=== PATIENT | male | born 1950 | race Caucasian/White ===

== ENCOUNTER 2017-06-08 00:36 | Inpatient (IN) | payer MEDICARE, OTHER ==
[2017-06-08 02:53] LABS: ADD UMIC YES; UR ASCORBIC ACID 40 mg/dL (NEGATIVE); UR BACTERIA FEW /HPF (NONE SEEN); UR BILIRUBIN (Dip) NEGATIVE (NEGATIVE); UR BLOOD (Dip) 3+ mg/dL (NEGATIVE); UR CLARITY CLOUDY (CLEAR); UR COLOR YELLOW (YELLOW); UR GLUCOSE (Dip) NEGATIVE (NEGATIVE); UR KETONES (Dip) NEGATIVE (NEGATIVE); UR LEUKOCYTE ESTERASE (Dip) TRACE Leu/ul (NEGATIVE); UR MUCUS FEW /HPF (NONE SEEN); UR NITRITE (Dip) NEGATIVE (NEGATIVE); UR RBC 93 /HPF (0-5); UR SPECIFIC GRAVITY (Dip) 1.015 (1.003-1.030); UR SQUAMOUS EPITHELIAL CELL FEW /HPF (FEW); UR TOTAL PROTEIN (Dip) 2+ mg/dl (NEGATIVE); UR UROBILINOGEN (Dip) NEGATIVE (NEGATIVE); UR WBC 3 /HPF (0-5)
[2017-06-08 03:05] LABS: ADD MAN DIFF? NO
[2017-06-08 03:08] LABS: WHITE BLOOD COUNT 18.3 10^3/ul (4.8-10.8)
[2017-06-08 03:08] LABS: BASOPHIL # 0.1 10^3/ul (0.0-0.1); BASOPHILS % 0.3 % (0.0-2.0); EOSINOPHILS # 0.1 10^3/ul (0.0-0.5); EOSINOPHILS % 0.6 % (0.0-7.0); HEMATOCRIT 41.9 % (42.0-52.0); HEMOGLOBIN 14.1 g/dl (14.0-18.0); LYMPHOCYTES # 1.1 10^3/ul (0.8-2.9); LYMPHOCYTES % 6.2 % (15.0-51.0); MEAN CORPUSCULAR HEMOGLOBIN 31.5 pg (29.0-33.0); MEAN CORPUSCULAR HGB CONC 33.7 g/dl (32.0-37.0); MEAN CORPUSCULAR VOLUME 93.5 fl (82.0-101.0); MEAN PLATELET VOLUME 12.5 fl (7.4-10.4); MONOCYTE # 1.3 10^3/ul (0.3-0.9); NEUTROPHIL # 15.6 10^3/ul (1.6-7.5); NEUTROPHILS % 85.2 % (39.0-77.0); PLATELET COUNT 356 10^3/UL (140-415); RED BLOOD COUNT 4.48 10^6/ul (4.70-6.10); RED CELL DISTRIBUTION WIDTH 13.3 % (11.5-14.5)
[2017-06-08 03:26] LABS: LACTIC ACID 1.6 mmol/L (0.5-2.0)
[2017-06-08 03:26] LABS: INR 1.09; PROTIME 14.3 Sec (11.9-14.9); PT RATIO 1.1
[2017-06-08 03:27] LABS: PARTIAL THROMBOPLASTIN TIME 29.4 Sec (25.0-35.0)
[2017-06-08 03:38] LABS: AADO2 Arterial 75.3 mmHg (7.0-24.0); Allen Test ACCEPTAB; Arterial Base Excess 5.4 mmol/L (-3.0-3); Arterial Blood Gas Oxygen Sat 94.8 mmHG (95.0-98.0); Arterial COHb 0.5 % (0.0-3.0); Arterial HCO3 29.9 mmol/L (22.0-26.0); Arterial MetHb 0.3 % (0.0-1.5); Arterial Total Hemglobin 14.9 g/dl (12.0-18.0); Arterial pCO2 43.1 mmhg (35-45); Site Right Radial
[2017-06-08 03:58] LABS: ALANINE AMINOTRANSFERASE 30 IU/L (13-69); ALBUMIN 3.9 g/dl (3.3-4.9); ALKALINE PHOSPHATASE 55 IU/L (42-121); ANION GAP 17 (8-16); ASPARTATE AMINO TRANSFERASE 42 IU/L (15-46); BILIRUBIN,INDIRECT 0.1 mg/dl (0-1.1); BILIRUBIN,TOTAL 0.1 mg/dl (0.2-1.3); BLOOD UREA NITROGEN 48 mg/dl (7-20); CALCIUM 10.6 mg/dl (8.4-10.2); CARBON DIOXIDE 30 mmol/L (21-31); CHLORIDE 104 mmol/L (97-110); CREATININE 2.03 mg/dl (0.61-1.24); GLUCOSE 138 mg/dl (70-220); POTASSIUM 4.3 mmol/L (3.5-5.1); SODIUM 147 mmol/L (135-144); TOTAL PROTEIN 8.2 g/dl (6.1-8.1)
[2017-06-08 04:09] LABS: TROPONIN-I 0.013 ng/ml (0.00-0.12)
[2017-06-08] MEDS: VANCOMYCIN 1 GM (PMX) 250 ML IVPB ×2 (05:12→16:27)
[2017-06-08 05:46] LABS: LACTIC ACID 1.5 mmol/L (0.5-2.0)
[2017-06-08] MEDS: MEROPENEM 500MG/50 ML (PMX) 50 ML IVPB ×2 (11:17→21:24)
[2017-06-08 11:52] LABS: LACTIC ACID 0.8 mmol/L (0.5-2.0)
[2017-06-08 11:59] LABS: MODE COOL AEROSOL
[2017-06-08] MEDS ORDERED: morphine 2 MG INJ IV (12:00)
[2017-06-08] MEDS ORDERED: NACL 0.9% 3 ML SYG IV (12:00)
[2017-06-08] MEDS ORDERED: LORAZEPAM 2 MG INJ IV (12:00)
[2017-06-08] MEDS ORDERED: ONDANSETRON 4 MG INJ IV (12:00)
[2017-06-08] MEDS ORDERED: VANCOMYCIN IV PER PHARMACY XX (12:00)
[2017-06-08] MEDS: SOD CHLORIDE 0.9% 1,000 ML IV ×2 (12:46→21:24)
[2017-06-08] MEDS: FAMOTIDINE 20 MG INJ IV (13:22)
[2017-06-08] MEDS: ENOXAPARIN 40 MG/0.4 ML SYG SC (13:31)
[2017-06-08] MEDS: ALBUTEROL/IPRATROPIUM (NEB) 3 ML AMP HHN ×2 (14:59→20:50)
[2017-06-08] MEDS: ACETYLCYSTEINE 20% 4 ML VIAL NEB ×2 (14:59→20:50)
[2017-06-08 17:51] LABS: SODIUM,URINE RANDOM 32 mmol/L (30-90)
[2017-06-08 17:53] LABS: CREATININE,URINE RANDOM 57.14 mg/dl (20-370); PROTEIN/CREAT RATIO 0.56 RATIO
[2017-06-08] MEDS ORDERED: ALBUTEROL/IPRATROPIUM (NEB) 3 ML AMP HHN (18:00)
[2017-06-08] MEDS ORDERED: ZOLPIDEM 5 MG TAB GTB (19:00)
[2017-06-08] MEDS ORDERED: MEROPENEM 500MG/50 ML (PMX) 50 ML IVPB (21:00)
[2017-06-08] MEDS: ASPIRIN (EC) 81 MG TAB PO (21:20)
[2017-06-08] MEDS: SACCHAROMYCES BOULARDII 250 MG CAP GTB (21:23)
[2017-06-08] MEDS: FENOFIBRATE 145 MG TAB GTB (21:24)
[2017-06-08] MEDS: LEVETIRACETAM (100 MG/ML) 5ML CUP GTB (21:24)
[2017-06-09] MEDS: ALBUTEROL/IPRATROPIUM (NEB) 3 ML AMP HHN ×4 (01:21→19:35)
[2017-06-09] MEDS: ACETYLCYSTEINE 20% 4 ML VIAL NEB ×4 (01:22→19:35)
[2017-06-09] MEDS: LANSOPRAZOLE 30 MG CAP GTB (06:41)
[2017-06-09 06:48] LABS: ADD MAN DIFF? NO
[2017-06-09 06:51] LABS: BASOPHILS % 0.4 % (0.0-2.0); EOSINOPHILS # 0.2 10^3/ul (0.0-0.5); EOSINOPHILS % 1.7 % (0.0-7.0); HEMATOCRIT 35.2 % (42.0-52.0); HEMOGLOBIN 11.4 g/dl (14.0-18.0); LYMPHOCYTES # 1.3 10^3/ul (0.8-2.9); MEAN CORPUSCULAR HEMOGLOBIN 31.1 pg (29.0-33.0); MEAN CORPUSCULAR HGB CONC 32.4 g/dl (32.0-37.0); MEAN CORPUSCULAR VOLUME 96.2 fl (82.0-101.0); MEAN PLATELET VOLUME 12.6 fl (7.4-10.4); MONOCYTE # 0.8 10^3/ul (0.3-0.9); MONOCYTES % 7.1 % (0.0-11.0); NEUTROPHIL # 8.2 10^3/ul (1.6-7.5); NEUTROPHILS % 77.9 % (39.0-77.0); PLATELET COUNT 268 10^3/UL (140-415); RED BLOOD COUNT 3.66 10^6/ul (4.70-6.10); RED CELL DISTRIBUTION WIDTH 13.5 % (11.5-14.5)
[2017-06-09 06:51] LABS: WHITE BLOOD COUNT 10.5 10^3/ul (4.8-10.8)
[2017-06-09 07:09] LABS: URIC ACID 5.1 mg/dl (3.1-7.9)
[2017-06-09 07:09] LABS: CREATINE KINASE 24 IU/L (23-200)
[2017-06-09 07:16] LABS: ALANINE AMINOTRANSFERASE 20 IU/L (13-69); ALBUMIN 2.9 g/dl (3.3-4.9); ALBUMIN/GLOBULIN RATIO 0.85; ALKALINE PHOSPHATASE 36 IU/L (42-121); ANION GAP 16 (8-16); ASPARTATE AMINO TRANSFERASE 28 IU/L (15-46); BLOOD UREA NITROGEN 46 mg/dl (7-20); CALCIUM 9.6 mg/dl (8.4-10.2); CARBON DIOXIDE 27 mmol/L (21-31); CHLORIDE 112 mmol/L (97-110); GLUCOSE 111 mg/dl (70-220); MAGNESIUM 2.1 mg/dl (1.7-2.5); POTASSIUM 4.1 mmol/L (3.5-5.1); SODIUM 151 mmol/L (135-144); TOTAL PROTEIN 6.3 g/dl (6.1-8.1)
[2017-06-09] MEDS: LEVETIRACETAM (100 MG/ML) 5ML CUP GTB ×2 (08:57→20:51)
[2017-06-09] MEDS: SOD CHLORIDE 0.9% 1,000 ML IV (08:57)
[2017-06-09] MEDS: SACCHAROMYCES BOULARDII 250 MG CAP GTB ×2 (08:57→20:51)
[2017-06-09] MEDS: ASPIRIN (EC) 81 MG TAB PO (08:58)
[2017-06-09] MEDS: CHOLECALCIFEROL 2,000 UNIT CAP GTB (08:58)
[2017-06-09] MEDS: FISH OIL 1,000 MG CAP PO (08:58)
[2017-06-09] MEDS: FAMOTIDINE 20 MG INJ IV (08:59)
[2017-06-09] MEDS: MEROPENEM 500MG/50 ML (PMX) 50 ML IVPB (09:00)
[2017-06-09] MEDS: ENOXAPARIN 40 MG/0.4 ML SYG SC (09:05)
[2017-06-09] MEDS: DEXTROSE 5% 1,000 ML IV (10:30)
[2017-06-09] MEDS: VANCOMYCIN 1.25 GM in SOD CHLORIDE 0.9% 250 ML IVPB (15:41)
[2017-06-09] MEDS: MEROPENEM 1 GM/50ML(PMX) 50 ML IVPB (16:20)
[2017-06-09] MEDS: FENOFIBRATE 145 MG TAB GTB (20:51)
[2017-06-10] MEDS: DEXTROSE 5% 1,000 ML IV ×2 (01:06→06:00)
[2017-06-10] MEDS: MEROPENEM 1 GM/50ML(PMX) 50 ML IVPB ×3 (01:06→14:21)
[2017-06-10] MEDS: ALBUTEROL/IPRATROPIUM (NEB) 3 ML AMP HHN ×4 (01:31→19:29)
[2017-06-10] MEDS: ACETYLCYSTEINE 20% 4 ML VIAL NEB ×4 (01:41→19:41)
[2017-06-10] MEDS: LANSOPRAZOLE 30 MG CAP GTB (06:23)
[2017-06-10 06:45] LABS: WHITE BLOOD COUNT 7.1 10^3/ul (4.8-10.8)
[2017-06-10 06:45] LABS: ADD MAN DIFF? NO; BASOPHIL # 0.1 10^3/ul (0.0-0.1); BASOPHILS % 0.7 % (0.0-2.0); EOSINOPHILS # 0.4 10^3/ul (0.0-0.5); EOSINOPHILS % 5.2 % (0.0-7.0); HEMATOCRIT 31.8 % (42.0-52.0); HEMOGLOBIN 10.4 g/dl (14.0-18.0); LYMPHOCYTES # 1.6 10^3/ul (0.8-2.9); LYMPHOCYTES % 22.1 % (15.0-51.0); MEAN CORPUSCULAR HEMOGLOBIN 31.8 pg (29.0-33.0); MEAN CORPUSCULAR HGB CONC 32.7 g/dl (32.0-37.0); MEAN CORPUSCULAR VOLUME 97.2 fl (82.0-101.0); MONOCYTE # 0.6 10^3/ul (0.3-0.9); MONOCYTES % 8.5 % (0.0-11.0); NEUTROPHIL # 4.4 10^3/ul (1.6-7.5); NEUTROPHILS % 62.8 % (39.0-77.0); PLATELET COUNT 246 10^3/UL (140-415); RED BLOOD COUNT 3.27 10^6/ul (4.70-6.10); RED CELL DISTRIBUTION WIDTH 13.5 % (11.5-14.5)
[2017-06-10 07:04] LABS: ANION GAP 14 (8-16); BLOOD UREA NITROGEN 39 mg/dl (7-20); CALCIUM 9.3 mg/dl (8.4-10.2); CARBON DIOXIDE 31 mmol/L (21-31); CHLORIDE 111 mmol/L (97-110); CREATININE 1.18 mg/dl (0.61-1.24); GLUCOSE 106 mg/dl (70-220); POTASSIUM 3.3 mmol/L (3.5-5.1); SODIUM 153 mmol/L (135-144)
[2017-06-10] MEDS: LEVETIRACETAM (100 MG/ML) 5ML CUP GTB ×2 (08:56→22:10)
[2017-06-10] MEDS: ASPIRIN (EC) 81 MG TAB PO (08:57)
[2017-06-10] MEDS: CHOLECALCIFEROL 2,000 UNIT CAP GTB (08:57)
[2017-06-10] MEDS: FISH OIL 1,000 MG CAP PO (08:57)
[2017-06-10] MEDS: SACCHAROMYCES BOULARDII 250 MG CAP GTB ×2 (08:57→22:10)
[2017-06-10] MEDS: FAMOTIDINE 20 MG INJ IV (08:58)
[2017-06-10] MEDS: ENOXAPARIN 40 MG/0.4 ML SYG SC (09:08)
[2017-06-10] MEDS: D5W + KCL 20 MEQ 1,000 ML IV (11:38)
[2017-06-10] MEDS: VANCOMYCIN 1.25 GM in SOD CHLORIDE 0.9% 250 ML IVPB (15:19)
[2017-06-10] MEDS: FENOFIBRATE 145 MG TAB GTB (22:11)
[2017-06-11] MEDS: D5W + KCL 20 MEQ 1,000 ML IV ×2 (00:18→05:31)
[2017-06-11] MEDS: ACETYLCYSTEINE 20% 4 ML VIAL NEB ×4 (01:24→20:41)
[2017-06-11] MEDS: ALBUTEROL/IPRATROPIUM (NEB) 3 ML AMP HHN ×4 (01:38→20:41)
[2017-06-11] MEDS: LANSOPRAZOLE 30 MG CAP GTB (05:22)
[2017-06-11 07:01] LABS: ADD MAN DIFF? NO
[2017-06-11 07:10] LABS: ABNORMAL IP MESSAGE 1; BASOPHIL # 0.1 10^3/ul (0.0-0.1); BASOPHILS % 0.9 % (0.0-2.0); EOSINOPHILS # 0.3 10^3/ul (0.0-0.5); EOSINOPHILS % 4.8 % (0.0-7.0); HEMATOCRIT 32.2 % (42.0-52.0); HEMOGLOBIN 10.4 g/dl (14.0-18.0); LYMPHOCYTES # 1.4 10^3/ul (0.8-2.9); LYMPHOCYTES % 21.6 % (15.0-51.0); MEAN CORPUSCULAR HEMOGLOBIN 31.2 pg (29.0-33.0); MEAN CORPUSCULAR HGB CONC 32.3 g/dl (32.0-37.0); MEAN CORPUSCULAR VOLUME 96.7 fl (82.0-101.0); MEAN PLATELET VOLUME 13.1 fl (7.4-10.4); MONOCYTE # 0.6 10^3/ul (0.3-0.9); MONOCYTES % 8.4 % (0.0-11.0); NEUTROPHIL # 4.2 10^3/ul (1.6-7.5); NEUTROPHILS % 63.8 % (39.0-77.0); PLATELET COUNT 240 10^3/UL (140-415); POSITIVE DIFF @See below; RED BLOOD COUNT 3.33 10^6/ul (4.70-6.10); RED CELL DISTRIBUTION WIDTH 13.3 % (11.5-14.5)
[2017-06-11 07:10] LABS: WHITE BLOOD COUNT 6.5 10^3/ul (4.8-10.8)
[2017-06-11 08:03] LABS: ANION GAP 16 (8-16); BLOOD UREA NITROGEN 29 mg/dl (7-20); CARBON DIOXIDE 26 mmol/L (21-31); CHLORIDE 110 mmol/L (97-110); CREATININE 0.84 mg/dl (0.61-1.24); GLUCOSE 123 mg/dl (70-220); POTASSIUM 3.4 mmol/L (3.5-5.1); SODIUM 149 mmol/L (135-144)
[2017-06-11] MEDS: FAMOTIDINE 20 MG INJ IV (08:52)
[2017-06-11] MEDS: FISH OIL 1,000 MG CAP PO (08:52)
[2017-06-11] MEDS: LEVETIRACETAM (100 MG/ML) 5ML CUP GTB ×2 (08:52→20:04)
[2017-06-11] MEDS: CHOLECALCIFEROL 2,000 UNIT CAP GTB (08:53)
[2017-06-11] MEDS: SACCHAROMYCES BOULARDII 250 MG CAP GTB ×2 (08:53→20:04)
[2017-06-11] MEDS: ASPIRIN (EC) 81 MG TAB PO (08:53)
[2017-06-11] MEDS: ENOXAPARIN 40 MG/0.4 ML SYG SC (08:58)
[2017-06-11] MEDS ORDERED: POTASSIUM CHLORIDE (SR) 20 MEQ TAB PO (15:30)
[2017-06-11] MEDS: POTASSIUM CHLORIDE 20 MEQ POWDER FOR ORAL SOLN GTB (15:48)
[2017-06-11] MEDS: FENOFIBRATE 145 MG TAB GTB (20:04)
[2017-06-11] MEDS ORDERED: VITAMIN A & D 5 GM OINT PACKET TOP (23:24)
[2017-06-11] MEDS: LORAZEPAM 0.5 MG TAB PO (23:26)
[2017-06-12] MEDS: ALBUTEROL/IPRATROPIUM (NEB) 3 ML AMP HHN ×4 (01:35→21:10)
[2017-06-12] MEDS: ACETYLCYSTEINE 20% 4 ML VIAL NEB ×4 (01:37→21:10)
[2017-06-12] MEDS: LANSOPRAZOLE 30 MG CAP GTB (05:16)
[2017-06-12 07:03] LABS: ADD MAN DIFF? NO
[2017-06-12 07:14] LABS: WHITE BLOOD COUNT 7.3 10^3/ul (4.8-10.8)
[2017-06-12 07:14] LABS: BASOPHIL # 0.1 10^3/ul (0.0-0.1); BASOPHILS % 0.8 % (0.0-2.0); EOSINOPHILS # 0.3 10^3/ul (0.0-0.5); HEMATOCRIT 33.5 % (42.0-52.0); LYMPHOCYTES # 1.6 10^3/ul (0.8-2.9); LYMPHOCYTES % 21.9 % (15.0-51.0); MEAN CORPUSCULAR HEMOGLOBIN 31.7 pg (29.0-33.0); MEAN CORPUSCULAR HGB CONC 32.8 g/dl (32.0-37.0); MEAN CORPUSCULAR VOLUME 96.5 fl (82.0-101.0); MEAN PLATELET VOLUME 12.5 fl (7.4-10.4); MONOCYTE # 0.7 10^3/ul (0.3-0.9); MONOCYTES % 9.2 % (0.0-11.0); NEUTROPHIL # 4.7 10^3/ul (1.6-7.5); NEUTROPHILS % 63.7 % (39.0-77.0); PLATELET COUNT 240 10^3/UL (140-415); RED BLOOD COUNT 3.47 10^6/ul (4.70-6.10)
[2017-06-12 07:43] LABS: ANION GAP 15 (8-16); BLOOD UREA NITROGEN 27 mg/dl (7-20); CARBON DIOXIDE 29 mmol/L (21-31); CHLORIDE 107 mmol/L (97-110); CREATININE 0.77 mg/dl (0.61-1.24); GLUCOSE 98 mg/dl (70-220); POTASSIUM 4.2 mmol/L (3.5-5.1); SODIUM 147 mmol/L (135-144)
[2017-06-12] MEDS: FAMOTIDINE 20 MG INJ IV (09:03)
[2017-06-12] MEDS: LEVETIRACETAM (100 MG/ML) 5ML CUP GTB ×2 (09:03→19:53)
[2017-06-12] MEDS: ASPIRIN (EC) 81 MG TAB PO (09:04)
[2017-06-12] MEDS: FISH OIL 1,000 MG CAP PO (09:04)
[2017-06-12] MEDS: SACCHAROMYCES BOULARDII 250 MG CAP GTB ×2 (09:04→19:54)
[2017-06-12] MEDS: CHOLECALCIFEROL 2,000 UNIT CAP GTB (09:06)
[2017-06-12] MEDS: ENOXAPARIN 40 MG/0.4 ML SYG SC (09:27)
[2017-06-12] MEDS: FENOFIBRATE 145 MG TAB GTB (19:54)
[2017-06-12] MEDS: LORAZEPAM 0.5 MG TAB PO (22:36)
[2017-06-12] MEDS: IVERMECTIN 3 MG TAB PO (22:37)
[2017-06-12] MEDS: DOXYCYCLINE 100 MG in SOD CHLORIDE 0.9% 250 ML IVPB (22:48)
[2017-06-12] MEDS: PERMETHRIN 5% 60 GM CR TOP (23:20)
[2017-06-12] MEDS: MUPIROCIN 2% 22 GM OINT TOP (23:20)
[2017-06-13] MEDS: ALBUTEROL/IPRATROPIUM (NEB) 3 ML AMP HHN ×4 (02:08→19:39)
[2017-06-13] MEDS: ACETYLCYSTEINE 20% 4 ML VIAL NEB ×4 (02:09→19:39)
[2017-06-13] MEDS: LANSOPRAZOLE 30 MG CAP GTB (05:35)
[2017-06-13 07:48] LABS: ADD MAN DIFF? NO
[2017-06-13 07:54] LABS: BASOPHIL # 0.1 10^3/ul (0.0-0.1); BASOPHILS % 0.6 % (0.0-2.0); EOSINOPHILS # 0.4 10^3/ul (0.0-0.5); EOSINOPHILS % 3.5 % (0.0-7.0); HEMATOCRIT 35.2 % (42.0-52.0); HEMOGLOBIN 11.5 g/dl (14.0-18.0); LYMPHOCYTES # 1.5 10^3/ul (0.8-2.9); LYMPHOCYTES % 14.7 % (15.0-51.0); MEAN CORPUSCULAR HEMOGLOBIN 31.6 pg (29.0-33.0); MEAN CORPUSCULAR HGB CONC 32.7 g/dl (32.0-37.0); MEAN CORPUSCULAR VOLUME 96.7 fl (82.0-101.0); MEAN PLATELET VOLUME 12.9 fl (7.4-10.4); MONOCYTE # 0.7 10^3/ul (0.3-0.9); MONOCYTES % 6.3 % (0.0-11.0); NEUTROPHIL # 7.7 10^3/ul (1.6-7.5); NEUTROPHILS % 74.5 % (39.0-77.0); PLATELET COUNT 251 10^3/UL (140-415); RED BLOOD COUNT 3.64 10^6/ul (4.70-6.10); RED CELL DISTRIBUTION WIDTH 12.9 % (11.5-14.5)
[2017-06-13 07:54] LABS: WHITE BLOOD COUNT 10.3 10^3/ul (4.8-10.8)
[2017-06-13 08:15] LABS: ANION GAP 15 (8-16); BLOOD UREA NITROGEN 30 mg/dl (7-20); CALCIUM 9.2 mg/dl (8.4-10.2); CARBON DIOXIDE 26 mmol/L (21-31); CHLORIDE 110 mmol/L (97-110); CREATININE 0.71 mg/dl (0.61-1.24); GLUCOSE 118 mg/dl (70-220); SODIUM 147 mmol/L (135-144)
[2017-06-13] MEDS: SACCHAROMYCES BOULARDII 250 MG CAP GTB ×2 (09:49→22:59)
[2017-06-13] MEDS: FISH OIL 1,000 MG CAP PO (09:50)
[2017-06-13] MEDS: MUPIROCIN 2% 22 GM OINT TOP ×2 (09:50→23:02)
[2017-06-13] MEDS: CHOLECALCIFEROL 2,000 UNIT CAP GTB (09:50)
[2017-06-13] MEDS: LEVETIRACETAM (100 MG/ML) 5ML CUP GTB ×2 (09:50→22:59)
[2017-06-13] MEDS: DOXYCYCLINE 100 MG in SOD CHLORIDE 0.9% 250 ML IVPB ×2 (09:50→23:00)
[2017-06-13] MEDS: FAMOTIDINE 20 MG INJ IV (09:50)
[2017-06-13] MEDS: ASPIRIN (EC) 81 MG TAB PO (09:50)
[2017-06-13] MEDS: ENOXAPARIN 40 MG/0.4 ML SYG SC (09:51)
[2017-06-13] MEDS: CLOBETASOL 0.05% 15 GM OINT TOP ×2 (14:30→23:01)
[2017-06-13] MEDS: FENOFIBRATE 145 MG TAB GTB (23:00)
[2017-06-13] MEDS: LORAZEPAM 0.5 MG TAB PO (23:00)
[2017-06-14] MEDS: ACETYLCYSTEINE 20% 4 ML VIAL NEB ×5 (01:33→20:18)
[2017-06-14] MEDS: ALBUTEROL/IPRATROPIUM (NEB) 3 ML AMP HHN ×4 (01:33→20:18)
[2017-06-14] MEDS: LANSOPRAZOLE 30 MG CAP GTB (06:27)
[2017-06-14 08:21] LABS: ADD MAN DIFF? NO
[2017-06-14 08:34] LABS: ABNORMAL IP MESSAGE 1; BASOPHIL # 0.1 10^3/ul (0.0-0.1); BASOPHILS % 1.3 % (0.0-2.0); EOSINOPHILS # 0.5 10^3/ul (0.0-0.5); EOSINOPHILS % 7.5 % (0.0-7.0); HEMATOCRIT 36.6 % (42.0-52.0); HEMOGLOBIN 11.9 g/dl (14.0-18.0); LYMPHOCYTES # 1.7 10^3/ul (0.8-2.9); LYMPHOCYTES % 23.6 % (15.0-51.0); MEAN CORPUSCULAR HEMOGLOBIN 31.5 pg (29.0-33.0); MEAN CORPUSCULAR HGB CONC 32.5 g/dl (32.0-37.0); MEAN CORPUSCULAR VOLUME 96.8 fl (82.0-101.0); MEAN PLATELET VOLUME 13.1 fl (7.4-10.4); MONOCYTE # 0.5 10^3/ul (0.3-0.9); MONOCYTES % 7.7 % (0.0-11.0); NEUTROPHIL # 4.2 10^3/ul (1.6-7.5); NEUTROPHILS % 59.6 % (39.0-77.0); PLATELET COUNT 260 10^3/UL (140-415); POSITIVE DIFF @See below; RED BLOOD COUNT 3.78 10^6/ul (4.70-6.10); RED CELL DISTRIBUTION WIDTH 12.9 % (11.5-14.5)
[2017-06-14 08:55] LABS: ANION GAP 16 (8-16); BLOOD UREA NITROGEN 34 mg/dl (7-20); CALCIUM 9.3 mg/dl (8.4-10.2); CARBON DIOXIDE 27 mmol/L (21-31); CHLORIDE 110 mmol/L (97-110); CREATININE 0.68 mg/dl (0.61-1.24); GLUCOSE 117 mg/dl (70-220); POTASSIUM 3.8 mmol/L (3.5-5.1); SODIUM 149 mmol/L (135-144)
[2017-06-14] MEDS: DOXYCYCLINE 100 MG in SOD CHLORIDE 0.9% 250 ML IVPB ×2 (09:00→23:05)
[2017-06-14] MEDS: CHOLECALCIFEROL 2,000 UNIT CAP GTB (09:58)
[2017-06-14] MEDS: SACCHAROMYCES BOULARDII 250 MG CAP GTB ×3 (09:58→23:03)
[2017-06-14] MEDS: MUPIROCIN 2% 22 GM OINT TOP ×2 (09:59→23:05)
[2017-06-14] MEDS: LEVETIRACETAM (100 MG/ML) 5ML CUP GTB ×2 (09:59→23:03)
[2017-06-14] MEDS: FISH OIL 1,000 MG CAP PO (09:59)
[2017-06-14] MEDS: ASPIRIN (EC) 81 MG TAB PO (09:59)
[2017-06-14] MEDS: FAMOTIDINE 20 MG INJ IV (09:59)
[2017-06-14] MEDS: CLOBETASOL 0.05% 15 GM OINT TOP ×2 (10:00→23:05)
[2017-06-14] MEDS: ENOXAPARIN 40 MG/0.4 ML SYG SC (10:03)
[2017-06-14] MEDS: POTASSIUM CHLORIDE 10 MEQ in DEXTROSE 5% 1,000 ML IV (14:23)
[2017-06-14] MEDS: LORAZEPAM 0.5 MG TAB PO (23:03)
[2017-06-14] MEDS: FENOFIBRATE 145 MG TAB GTB (23:03)
[2017-06-15] MEDS: ALBUTEROL/IPRATROPIUM (NEB) 3 ML AMP HHN ×4 (02:26→20:06)
[2017-06-15] MEDS: ACETYLCYSTEINE 20% 4 ML VIAL NEB ×4 (02:27→20:06)
[2017-06-15] MEDS: POTASSIUM CHLORIDE 10 MEQ in DEXTROSE 5% 1,000 ML IV ×2 (04:22→11:41)
[2017-06-15] MEDS: LANSOPRAZOLE 30 MG CAP GTB (06:45)
[2017-06-15 06:51] LABS: ANION GAP 9 (8-16); BLOOD UREA NITROGEN 31 mg/dl (7-20); CARBON DIOXIDE 29 mmol/L (21-31); CHLORIDE 112 mmol/L (97-110); CREATININE 0.68 mg/dl (0.61-1.24); GLUCOSE 123 mg/dl (70-220); SODIUM 146 mmol/L (135-144)
[2017-06-15] MEDS: ASPIRIN (EC) 81 MG TAB PO (08:51)
[2017-06-15] MEDS: FAMOTIDINE 20 MG INJ IV (08:51)
[2017-06-15] MEDS: CHOLECALCIFEROL 2,000 UNIT CAP GTB (08:51)
[2017-06-15] MEDS: SACCHAROMYCES BOULARDII 250 MG CAP GTB ×2 (08:51→20:32)
[2017-06-15] MEDS: LEVETIRACETAM (100 MG/ML) 5ML CUP GTB ×2 (08:51→20:33)
[2017-06-15] MEDS: FISH OIL 1,000 MG CAP PO (08:52)
[2017-06-15] MEDS: DOXYCYCLINE 100 MG in SOD CHLORIDE 0.9% 250 ML IVPB ×2 (08:52→20:33)
[2017-06-15] MEDS: MUPIROCIN 2% 22 GM OINT TOP ×2 (09:00→20:34)
[2017-06-15] MEDS: CLOBETASOL 0.05% 15 GM OINT TOP ×2 (09:00→20:34)
[2017-06-15] MEDS: ENOXAPARIN 40 MG/0.4 ML SYG SC (09:18)
[2017-06-15] MEDS: PERMETHRIN 5% 60 GM CR TOP (14:22)
[2017-06-15] MEDS: FENOFIBRATE 145 MG TAB GTB (20:32)
[2017-06-15] MEDS: LORAZEPAM 0.5 MG TAB PO (22:45)
[2017-06-16] MEDS: LORAZEPAM 0.5 MG TAB PO ×2 (01:09→21:14)
[2017-06-16] MEDS: ALBUTEROL/IPRATROPIUM (NEB) 3 ML AMP HHN ×4 (01:23→20:42)
[2017-06-16] MEDS: ACETYLCYSTEINE 20% 4 ML VIAL NEB ×5 (01:23→20:43)
[2017-06-16] MEDS: LANSOPRAZOLE 30 MG CAP GTB (06:05)
[2017-06-16 07:04] LABS: ALANINE AMINOTRANSFERASE 25 IU/L (13-69); ALBUMIN 3.5 g/dl (3.3-4.9); ALBUMIN/GLOBULIN RATIO 0.94; ALKALINE PHOSPHATASE 56 IU/L (42-121); ANION GAP 14 (8-16); ASPARTATE AMINO TRANSFERASE 20 IU/L (15-46); BLOOD UREA NITROGEN 23 mg/dl (7-20); CALCIUM 8.5 mg/dl (8.4-10.2); CARBON DIOXIDE 24 mmol/L (21-31); CHLORIDE 105 mmol/L (97-110); CREATININE 0.64 mg/dl (0.61-1.24); GLUCOSE 120 mg/dl (70-220); POTASSIUM 3.9 mmol/L (3.5-5.1); SODIUM 139 mmol/L (135-144); TOTAL PROTEIN 7.2 g/dl (6.1-8.1)
[2017-06-16 07:05] LABS: PHOSPHORUS 2.5 mg/dl (2.5-4.9)
[2017-06-16 07:05] LABS: MAGNESIUM 1.7 mg/dl (1.7-2.5)
[2017-06-16] MEDS: MUPIROCIN 2% 22 GM OINT TOP ×2 (09:00→21:25)
[2017-06-16] MEDS: CLOBETASOL 0.05% 15 GM OINT TOP ×2 (09:00→21:25)
[2017-06-16] MEDS: CHOLECALCIFEROL 2,000 UNIT CAP GTB (09:00)
[2017-06-16] MEDS: LEVETIRACETAM (100 MG/ML) 5ML CUP GTB ×2 (09:29→21:14)
[2017-06-16] MEDS: FAMOTIDINE 20 MG INJ IV (09:31)
[2017-06-16] MEDS: ASPIRIN (EC) 81 MG TAB PO (09:31)
[2017-06-16] MEDS: SACCHAROMYCES BOULARDII 250 MG CAP GTB ×2 (09:32→21:14)
[2017-06-16] MEDS: FISH OIL 1,000 MG CAP PO (09:32)
[2017-06-16] MEDS: ENOXAPARIN 40 MG/0.4 ML SYG SC (09:36)
[2017-06-16] MEDS: DOXYCYCLINE 100 MG in SOD CHLORIDE 0.9% 250 ML IVPB ×2 (09:44→21:18)
[2017-06-16] MEDS: FENOFIBRATE 145 MG TAB GTB (21:14)
[2017-06-17] MEDS: ACETYLCYSTEINE 20% 4 ML VIAL NEB ×4 (01:18→20:01)
[2017-06-17] MEDS: ALBUTEROL/IPRATROPIUM (NEB) 3 ML AMP HHN ×4 (01:18→20:01)
[2017-06-17] MEDS: LANSOPRAZOLE 30 MG CAP GTB (06:10)
[2017-06-17] MEDS: LEVETIRACETAM (100 MG/ML) 5ML CUP GTB ×2 (09:16→21:37)
[2017-06-17] MEDS: ENOXAPARIN 40 MG/0.4 ML SYG SC (09:18)
[2017-06-17] MEDS: ASPIRIN (EC) 81 MG TAB PO (09:19)
[2017-06-17] MEDS: FISH OIL 1,000 MG CAP PO (09:19)
[2017-06-17] MEDS: SACCHAROMYCES BOULARDII 250 MG CAP GTB ×2 (09:19→21:38)
[2017-06-17] MEDS: CHOLECALCIFEROL 2,000 UNIT CAP GTB (09:19)
[2017-06-17] MEDS: MUPIROCIN 2% 22 GM OINT TOP (09:20)
[2017-06-17] MEDS: CLOBETASOL 0.05% 15 GM OINT TOP ×2 (09:21→21:37)
[2017-06-17] MEDS: FAMOTIDINE 20 MG INJ IV (09:29)
[2017-06-17] MEDS: DOXYCYCLINE 100 MG in SOD CHLORIDE 0.9% 250 ML IVPB (09:30)
[2017-06-17] MEDS: LORAZEPAM 0.5 MG TAB PO (21:37)
[2017-06-17] MEDS: ACETAMINOPHEN 325 MG TAB PO (21:38)
[2017-06-17] MEDS: FENOFIBRATE 145 MG TAB GTB (21:38)
[2017-06-18] MEDS: ALBUTEROL/IPRATROPIUM (NEB) 3 ML AMP HHN ×3 (02:05→13:46)
[2017-06-18] MEDS: ACETYLCYSTEINE 20% 4 ML VIAL NEB ×3 (02:05→13:58)
[2017-06-18] MEDS: LANSOPRAZOLE 30 MG CAP GTB (05:34)
[2017-06-18 06:10] LABS: ADD MAN DIFF? NO
[2017-06-18 06:11] LABS: WHITE BLOOD COUNT 6.6 10^3/ul (4.8-10.8)
[2017-06-18 06:11] LABS: ABNORMAL IP MESSAGE 1; BASOPHIL # 0.1 10^3/ul (0.0-0.1); BASOPHILS % 0.9 % (0.0-2.0); EOSINOPHILS # 0.4 10^3/ul (0.0-0.5); EOSINOPHILS % 6.1 % (0.0-7.0); HEMATOCRIT 34.4 % (42.0-52.0); HEMOGLOBIN 11.4 g/dl (14.0-18.0); LYMPHOCYTES % 29.8 % (15.0-51.0); MEAN CORPUSCULAR HEMOGLOBIN 31.1 pg (29.0-33.0); MEAN CORPUSCULAR HGB CONC 33.1 g/dl (32.0-37.0); MEAN CORPUSCULAR VOLUME 93.7 fl (82.0-101.0); MEAN PLATELET VOLUME 13.4 fl (7.4-10.4); MONOCYTE # 0.6 10^3/ul (0.3-0.9); MONOCYTES % 9.1 % (0.0-11.0); NEUTROPHIL # 3.5 10^3/ul (1.6-7.5); NEUTROPHILS % 53.5 % (39.0-77.0); PLATELET COUNT 234 10^3/UL (140-415); POSITIVE DIFF @See below; RED BLOOD COUNT 3.67 10^6/ul (4.70-6.10); RED CELL DISTRIBUTION WIDTH 12.9 % (11.5-14.5)
[2017-06-18 06:34] LABS: BLOOD UREA NITROGEN 25 mg/dl (7-20); CALCIUM 9.4 mg/dl (8.4-10.2); CARBON DIOXIDE 28 mmol/L (21-31); CREATININE 0.65 mg/dl (0.61-1.24); GLUCOSE 100 mg/dl (70-220); SODIUM 143 mmol/L (135-144)
[2017-06-18 07:48] LABS: ANION GAP 15 (8-16)
[2017-06-18 07:51] LABS: CHLORIDE 104 mmol/L (97-110)
[2017-06-18] MEDS: LEVETIRACETAM (100 MG/ML) 5ML CUP GTB (09:20)
[2017-06-18] MEDS: FISH OIL 1,000 MG CAP PO (09:21)
[2017-06-18] MEDS: ASPIRIN (EC) 81 MG TAB PO (09:21)
[2017-06-18] MEDS: CHOLECALCIFEROL 2,000 UNIT CAP GTB (09:21)
[2017-06-18] MEDS: FAMOTIDINE 20 MG INJ IV (09:21)
[2017-06-18] MEDS: ENOXAPARIN 40 MG/0.4 ML SYG SC (09:25)
[2017-06-18] MEDS: SACCHAROMYCES BOULARDII 250 MG CAP GTB (09:35)
[2017-06-18] MEDS: CLOBETASOL 0.05% 15 GM OINT TOP (09:36)
== END 2017-06-18 19:15 | DRG 871 ==
LOC: E/R 00:36 → MS2 06-14 20:45 → TEL 04:24
DX: A41.9 Sepsis, unspecified organism (principal); J18.9 Pneumonia, unspecified organism; N17.0 Acute kidney failure with tubular necrosis; G93.41 Metabolic encephalopathy; N17.9 Acute kidney failure, unspecified; N39.0 Urinary tract infection, site not specified; J96.10 Chronic respiratory failure, unspecified whether with hypoxia or hypercapnia; E87.0 Hyperosmolality and hypernatremia; N13.30 Unspecified hydronephrosis; Z93.0 Tracheostomy status; G35 Multiple sclerosis; R13.10 Dysphagia, unspecified; Z93.1 Gastrostomy status; Z96.0 Presence of urogenital implants; R65.20 Severe sepsis without septic shock; Y95 Nosocomial condition; N31.9 Neuromuscular dysfunction of bladder, unspecified; J01.90 Acute sinusitis, unspecified; B95.62 Methicillin resistant Staphylococcus aureus infection as the cause of diseases classified elsewhere; Z87.442 Personal history of urinary calculi; N13.9 Obstructive and reflux uropathy, unspecified; E87.6 Hypokalemia; R21 Rash and other nonspecific skin eruption
CPT/HCPCS: 36415; 36600; 70450; 71045; 74018; 76775; 80048; 80053; 81001; 81003; 82550; 82570; 82803; 82962; 83605; 83735; 84100; 84300; 84443; 84484; 84560; 85025; 85610; 85730; 87040; 87070; 87086; 88304; 89190; 93005; 94640; 94664; 96374; 97110; 97161; 99285-25

== ENCOUNTER 2017-08-22 19:53 | Inpatient (IN) | payer MEDICARE, OTHER ==
[2017-08-22] MEDS: SOD CHLORIDE 0.9% 1,000 ML IV (23:10)
[2017-08-22 23:25] LABS: ADD MAN DIFF? NO
[2017-08-22 23:26] LABS: BASOPHIL # 0.1 10^3/ul (0.0-0.1); BASOPHILS % 0.5 % (0.0-2.0); EOSINOPHILS # 0.3 10^3/ul (0.0-0.5); EOSINOPHILS % 2.6 % (0.0-7.0); HEMATOCRIT 37.1 % (42.0-52.0); HEMOGLOBIN 12.3 g/dl (14.0-18.0); LYMPHOCYTES # 1.3 10^3/ul (0.8-2.9); LYMPHOCYTES % 9.8 % (15.0-51.0); MEAN CORPUSCULAR HEMOGLOBIN 32.5 pg (29.0-33.0); MEAN CORPUSCULAR HGB CONC 33.2 g/dl (32.0-37.0); MEAN CORPUSCULAR VOLUME 97.9 fl (82.0-101.0); MEAN PLATELET VOLUME 12.3 fl (7.4-10.4); MONOCYTE # 0.8 10^3/ul (0.3-0.9); MONOCYTES % 6.3 % (0.0-11.0); NEUTROPHIL # 10.7 10^3/ul (1.6-7.5); NEUTROPHILS % 80.4 % (39.0-77.0); PLATELET COUNT 193 10^3/UL (140-415); RED BLOOD COUNT 3.79 10^6/ul (4.70-6.10); RED CELL DISTRIBUTION WIDTH 14.1 % (11.5-14.5)
[2017-08-22 23:26] LABS: WHITE BLOOD COUNT 13.3 10^3/ul (4.8-10.8)
[2017-08-22 23:45] LABS: ALANINE AMINOTRANSFERASE 31 IU/L (13-69); ALBUMIN/GLOBULIN RATIO 1.29; ALKALINE PHOSPHATASE 41 IU/L (42-121); ANION GAP 15 (8-16); ASPARTATE AMINO TRANSFERASE 25 IU/L (15-46); BILIRUBIN,INDIRECT 0.4 mg/dl (0-1.1); BILIRUBIN,TOTAL 0.4 mg/dl (0.2-1.3); BLOOD UREA NITROGEN 16 mg/dl (7-20); CALCIUM 9.1 mg/dl (8.4-10.2); CARBON DIOXIDE 30 mmol/L (21-31); CHLORIDE 100 mmol/L (97-110); CREATININE 0.82 mg/dl (0.61-1.24); GLUCOSE 96 mg/dl (70-220); LIPASE 35 U/L (23-300); SODIUM 141 mmol/L (135-144); TOTAL PROTEIN 7.1 g/dl (6.1-8.1)
[2017-08-23 00:01] LABS: ADD UMIC YES; UR ASCORBIC ACID 20 mg/dL (NEGATIVE); UR BACTERIA MODERATE /HPF (NONE SEEN); UR BILIRUBIN (Dip) NEGATIVE (NEGATIVE); UR BLOOD (Dip) 2+ mg/dL (NEGATIVE); UR CLARITY CLEAR (CLEAR); UR COLOR RED (YELLOW); UR GLUCOSE (Dip) 1+ mg/dL (NEGATIVE); UR KETONES (Dip) NEGATIVE (NEGATIVE); UR LEUKOCYTE ESTERASE (Dip) 2+ Leu/ul (NEGATIVE); UR MUCUS FEW /HPF (NONE SEEN); UR NITRITE (Dip) NEGATIVE (NEGATIVE); UR RBC 125 /HPF (0-5); UR SPECIFIC GRAVITY (Dip) 1.005 (1.003-1.030); UR TOTAL PROTEIN (Dip) 2+ mg/dl (NEGATIVE); UR UROBILINOGEN (Dip) NEGATIVE (NEGATIVE); UR WBC > 182 /HPF (0-5)
[2017-08-23] MEDS: SOD CHLORIDE 0.9% 1,000 ML IV (00:11)
[2017-08-23] MEDS ORDERED: ONDANSETRON 4 MG INJ IV (00:30)
[2017-08-23] MEDS ORDERED: ACETAMINOPHEN 325 MG TAB PO (00:30)
[2017-08-23] MEDS: CEFTRIAXONE 1 GM/50 ML (PMX) 50 ML IVPB (00:40)
[2017-08-23] MEDS: SODIUM CHLORIDE 0.9% 1L BAG IV* (00:41)
[2017-08-23 01:05] LABS: LACTIC ACID 0.9 mmol/L (0.5-2.0)
[2017-08-23] MEDS ORDERED: DIPHENHYDRAMINE 25 MG CAP GTB (05:00)
[2017-08-23] MEDS ORDERED: ZOLPIDEM 5 MG TAB GTB (05:00)
[2017-08-23 05:02] LABS: ADD MAN DIFF? NO
[2017-08-23 05:07] LABS: WHITE BLOOD COUNT 10.6 10^3/ul (4.8-10.8)
[2017-08-23 05:07] LABS: BASOPHILS % 0.3 % (0.0-2.0); EOSINOPHILS # 0.2 10^3/ul (0.0-0.5); EOSINOPHILS % 1.7 % (0.0-7.0); HEMATOCRIT 30.7 % (42.0-52.0); HEMOGLOBIN 10.2 g/dl (14.0-18.0); LYMPHOCYTES # 1.3 10^3/ul (0.8-2.9); LYMPHOCYTES % 12.3 % (15.0-51.0); MEAN CORPUSCULAR HEMOGLOBIN 32.7 pg (29.0-33.0); MEAN CORPUSCULAR HGB CONC 33.2 g/dl (32.0-37.0); MEAN CORPUSCULAR VOLUME 98.4 fl (82.0-101.0); MONOCYTE # 0.9 10^3/ul (0.3-0.9); MONOCYTES % 8.7 % (0.0-11.0); NEUTROPHIL # 8.2 10^3/ul (1.6-7.5); NEUTROPHILS % 76.7 % (39.0-77.0); PLATELET COUNT 158 10^3/UL (140-415); RED BLOOD COUNT 3.12 10^6/ul (4.70-6.10); RED CELL DISTRIBUTION WIDTH 14.2 % (11.5-14.5)
[2017-08-23 05:30] LABS: LACTIC ACID 0.7 mmol/L (0.5-2.0)
[2017-08-23] MEDS: LANSOPRAZOLE 30 MG CAP GTB (05:33)
[2017-08-23 05:34] LABS: ANION GAP 12 (8-16); BLOOD UREA NITROGEN 15 mg/dl (7-20); CALCIUM 8.2 mg/dl (8.4-10.2); CARBON DIOXIDE 27 mmol/L (21-31); CHLORIDE 107 mmol/L (97-110); CREATININE 0.78 mg/dl (0.61-1.24); GLUCOSE 105 mg/dl (70-220); POTASSIUM 3.9 mmol/L (3.5-5.1); SODIUM 142 mmol/L (135-144)
[2017-08-23] MEDS: PIPER-TAZO 3.375 GM IV (PMX) 100 ML IVPB ×3 (05:34→17:51)
[2017-08-23] MEDS ORDERED: ALBUTEROL/IPRATROPIUM (NEB) 3 ML AMP HHN ×2 (08:00→10:00)
[2017-08-23] MEDS: ALBUTEROL/IPRATROPIUM (NEB) 3 ML AMP HHN ×3 (08:00→19:20)
[2017-08-23] MEDS: ENOXAPARIN 40 MG/0.4 ML SYG SC (09:00)
[2017-08-23] MEDS: SACCHAROMYCES BOULARDII 250 MG CAP GTB ×2 (09:36→21:04)
[2017-08-23] MEDS: METHENAMINE 1 GM TAB GTB ×2 (09:36→21:04)
[2017-08-23] MEDS: DICYCLOMINE 10 MG CAP GTB ×2 (09:36→21:04)
[2017-08-23] MEDS: BACLOFEN 10 MG TAB GTB ×4 (09:37→21:04)
[2017-08-23] MEDS: CHOLECALCIFEROL 2,000 UNIT CAP GTB (09:37)
[2017-08-23] MEDS: ESCITALOPRAM 10 MG TAB GTB (09:37)
[2017-08-23] MEDS: FISH OIL 1,000 MG CAP PO (09:37)
[2017-08-23] MEDS: CHOLECALCIFEROL 1,000 UNIT TAB GTB (10:00)
[2017-08-23] MEDS: LEVETIRACETAM (100 MG/ML) 5ML CUP GTB ×2 (13:04→21:04)
[2017-08-23] MEDS: FENOFIBRATE 145 MG TAB GTB (21:04)
[2017-08-23] MEDS: LORAZEPAM 1 MG TAB GTB (21:04)
[2017-08-24] MEDS: ALBUTEROL/IPRATROPIUM (NEB) 3 ML AMP HHN ×4 (01:31→20:50)
[2017-08-24 05:15] LABS: ADD MAN DIFF? NO
[2017-08-24 05:22] LABS: WHITE BLOOD COUNT 7.8 10^3/ul (4.8-10.8)
[2017-08-24 05:22] LABS: BASOPHILS % 0.4 % (0.0-2.0); EOSINOPHILS # 0.2 10^3/ul (0.0-0.5); EOSINOPHILS % 1.9 % (0.0-7.0); HEMATOCRIT 28.2 % (42.0-52.0); HEMOGLOBIN 9.1 g/dl (14.0-18.0); LYMPHOCYTES # 1.2 10^3/ul (0.8-2.9); LYMPHOCYTES % 15.3 % (15.0-51.0); MEAN CORPUSCULAR HEMOGLOBIN 32.2 pg (29.0-33.0); MEAN CORPUSCULAR HGB CONC 32.3 g/dl (32.0-37.0); MEAN CORPUSCULAR VOLUME 99.6 fl (82.0-101.0); MEAN PLATELET VOLUME 12.7 fl (7.4-10.4); MONOCYTE # 0.6 10^3/ul (0.3-0.9); MONOCYTES % 7.8 % (0.0-11.0); NEUTROPHIL # 5.8 10^3/ul (1.6-7.5); NEUTROPHILS % 74.2 % (39.0-77.0); PLATELET COUNT 136 10^3/UL (140-415); RED BLOOD COUNT 2.83 10^6/ul (4.70-6.10); RED CELL DISTRIBUTION WIDTH 14.2 % (11.5-14.5)
[2017-08-24 05:43] LABS: ANION GAP 8 (8-16); BLOOD UREA NITROGEN 15 mg/dl (7-20); CARBON DIOXIDE 26 mmol/L (21-31); CHLORIDE 115 mmol/L (97-110); CREATININE 0.74 mg/dl (0.61-1.24); GLUCOSE 113 mg/dl (70-220); POTASSIUM 3.5 mmol/L (3.5-5.1); SODIUM 145 mmol/L (135-144)
[2017-08-24] MEDS: LANSOPRAZOLE 30 MG CAP GTB (06:09)
[2017-08-24] MEDS: PIPER-TAZO 3.375 GM IV (PMX) 100 ML IVPB ×4 (06:09→18:23)
[2017-08-24] MEDS: METHENAMINE 1 GM TAB GTB ×2 (09:48→21:13)
[2017-08-24] MEDS: SACCHAROMYCES BOULARDII 250 MG CAP GTB ×2 (09:48→21:13)
[2017-08-24] MEDS: DICYCLOMINE 10 MG CAP GTB ×2 (09:48→21:26)
[2017-08-24] MEDS: FISH OIL 1,000 MG CAP PO (09:48)
[2017-08-24] MEDS: BACLOFEN 10 MG TAB GTB ×4 (09:48→21:13)
[2017-08-24] MEDS: CHOLECALCIFEROL 1,000 UNIT TAB GTB (09:48)
[2017-08-24] MEDS: LEVETIRACETAM (100 MG/ML) 5ML CUP GTB ×2 (09:48→21:13)
[2017-08-24] MEDS: ESCITALOPRAM 10 MG TAB GTB (09:49)
[2017-08-24] MEDS: FENOFIBRATE 145 MG TAB GTB (21:13)
[2017-08-24] MEDS: LORAZEPAM 1 MG TAB GTB (23:01)
[2017-08-25] MEDS: PIPER-TAZO 3.375 GM IV (PMX) 100 ML IVPB ×4 (00:03→18:14)
[2017-08-25] MEDS: ALBUTEROL/IPRATROPIUM (NEB) 3 ML AMP HHN ×4 (01:51→20:17)
[2017-08-25] MEDS: LANSOPRAZOLE 30 MG CAP GTB (05:41)
[2017-08-25 06:19] LABS: ADD MAN DIFF? NO
[2017-08-25 06:33] LABS: WHITE BLOOD COUNT 6.2 10^3/ul (4.8-10.8)
[2017-08-25 06:33] LABS: ABNORMAL IP MESSAGE 1; BASOPHILS % 0.7 % (0.0-2.0); EOSINOPHILS # 0.3 10^3/ul (0.0-0.5); EOSINOPHILS % 4.6 % (0.0-7.0); HEMATOCRIT 28.7 % (42.0-52.0); LYMPHOCYTES # 1.2 10^3/ul (0.8-2.9); LYMPHOCYTES % 19.3 % (15.0-51.0); MEAN CORPUSCULAR HEMOGLOBIN 31.9 pg (29.0-33.0); MEAN CORPUSCULAR HGB CONC 31.4 g/dl (32.0-37.0); MEAN CORPUSCULAR VOLUME 101.8 fl (82.0-101.0); MEAN PLATELET VOLUME 13.4 fl (7.4-10.4); MONOCYTE # 0.5 10^3/ul (0.3-0.9); MONOCYTES % 8.5 % (0.0-11.0); NEUTROPHIL # 4.1 10^3/ul (1.6-7.5); NEUTROPHILS % 66.6 % (39.0-77.0); PLATELET COUNT 155 10^3/UL (140-415); POSITIVE DIFF @See below; RED BLOOD COUNT 2.82 10^6/ul (4.70-6.10); RED CELL DISTRIBUTION WIDTH 14.3 % (11.5-14.5)
[2017-08-25 07:14] LABS: ANION GAP 7 (8-16); BLOOD UREA NITROGEN 15 mg/dl (7-20); CALCIUM 8.3 mg/dl (8.4-10.2); CARBON DIOXIDE 27 mmol/L (21-31); CHLORIDE 116 mmol/L (97-110); CREATININE 0.68 mg/dl (0.61-1.24); GLUCOSE 103 mg/dl (70-220); POTASSIUM 3.8 mmol/L (3.5-5.1); SODIUM 146 mmol/L (135-144)
[2017-08-25] MEDS: ESCITALOPRAM 10 MG TAB GTB (09:39)
[2017-08-25] MEDS: CHOLECALCIFEROL 1,000 UNIT TAB GTB (09:40)
[2017-08-25] MEDS: METHENAMINE 1 GM TAB GTB ×2 (09:40→20:51)
[2017-08-25] MEDS: FISH OIL 1,000 MG CAP PO (09:40)
[2017-08-25] MEDS: DICYCLOMINE 10 MG CAP GTB ×2 (09:40→20:52)
[2017-08-25] MEDS: LEVETIRACETAM (100 MG/ML) 5ML CUP GTB ×2 (09:41→20:51)
[2017-08-25] MEDS: SACCHAROMYCES BOULARDII 250 MG CAP GTB ×2 (09:41→20:51)
[2017-08-25] MEDS: BACLOFEN 10 MG TAB GTB ×4 (09:41→20:52)
[2017-08-25] MEDS: FENOFIBRATE 145 MG TAB GTB (20:52)
[2017-08-25] MEDS: LORAZEPAM 1 MG TAB GTB (23:20)
[2017-08-26] MEDS: PIPER-TAZO 3.375 GM IV (PMX) 100 ML IVPB ×5 (00:16→23:25)
[2017-08-26] MEDS: ALBUTEROL/IPRATROPIUM (NEB) 3 ML AMP HHN ×4 (01:47→19:50)
[2017-08-26] MEDS: LANSOPRAZOLE 30 MG CAP GTB (05:37)
[2017-08-26] MEDS: BACLOFEN 10 MG TAB GTB ×4 (08:53→20:18)
[2017-08-26] MEDS: LEVETIRACETAM (100 MG/ML) 5ML CUP GTB ×2 (08:53→20:17)
[2017-08-26] MEDS: SACCHAROMYCES BOULARDII 250 MG CAP GTB ×2 (08:54→20:17)
[2017-08-26] MEDS: FISH OIL 1,000 MG CAP PO (08:54)
[2017-08-26] MEDS: ESCITALOPRAM 10 MG TAB GTB (08:54)
[2017-08-26] MEDS: DICYCLOMINE 10 MG CAP GTB ×2 (08:54→20:18)
[2017-08-26] MEDS: METHENAMINE 1 GM TAB GTB ×2 (08:55→20:18)
[2017-08-26] MEDS: CHOLECALCIFEROL 1,000 UNIT TAB GTB (08:55)
[2017-08-26] MEDS: LORAZEPAM 1 MG TAB GTB (20:17)
[2017-08-26] MEDS: FENOFIBRATE 145 MG TAB GTB (20:18)
[2017-08-27] MEDS: ALBUTEROL/IPRATROPIUM (NEB) 3 ML AMP HHN ×4 (02:19→20:49)
[2017-08-27 05:47] LABS: ADD MAN DIFF? NO
[2017-08-27 05:52] LABS: BASOPHILS % 0.8 % (0.0-2.0); EOSINOPHILS # 0.4 10^3/ul (0.0-0.5); EOSINOPHILS % 7.8 % (0.0-7.0); HEMATOCRIT 30.2 % (42.0-52.0); HEMOGLOBIN 9.8 g/dl (14.0-18.0); LYMPHOCYTES # 1.3 10^3/ul (0.8-2.9); LYMPHOCYTES % 23.6 % (15.0-51.0); MEAN CORPUSCULAR HEMOGLOBIN 31.8 pg (29.0-33.0); MEAN CORPUSCULAR HGB CONC 32.5 g/dl (32.0-37.0); MEAN CORPUSCULAR VOLUME 98.1 fl (82.0-101.0); MEAN PLATELET VOLUME 12.6 fl (7.4-10.4); MONOCYTE # 0.4 10^3/ul (0.3-0.9); MONOCYTES % 7.8 % (0.0-11.0); NEUTROPHIL # 3.2 10^3/ul (1.6-7.5); NEUTROPHILS % 59.8 % (39.0-77.0); PLATELET COUNT 195 10^3/UL (140-415); RED BLOOD COUNT 3.08 10^6/ul (4.70-6.10); RED CELL DISTRIBUTION WIDTH 13.7 % (11.5-14.5)
[2017-08-27 05:52] LABS: WHITE BLOOD COUNT 5.3 10^3/ul (4.8-10.8)
[2017-08-27 06:23] LABS: ANION GAP 9 (8-16); BLOOD UREA NITROGEN 9 mg/dl (7-20); CALCIUM 8.7 mg/dl (8.4-10.2); CARBON DIOXIDE 30 mmol/L (21-31); CHLORIDE 109 mmol/L (97-110); CREATININE 0.73 mg/dl (0.61-1.24); GLUCOSE 104 mg/dl (70-220); POTASSIUM 4.3 mmol/L (3.5-5.1); SODIUM 144 mmol/L (135-144)
[2017-08-27] MEDS: LANSOPRAZOLE 30 MG CAP GTB (06:49)
[2017-08-27] MEDS: PIPER-TAZO 3.375 GM IV (PMX) 100 ML IVPB ×2 (06:49→12:00)
[2017-08-27] MEDS: LEVETIRACETAM (100 MG/ML) 5ML CUP GTB ×2 (08:54→20:42)
[2017-08-27] MEDS: SACCHAROMYCES BOULARDII 250 MG CAP GTB ×2 (08:54→20:42)
[2017-08-27] MEDS: METHENAMINE 1 GM TAB GTB ×2 (08:54→20:42)
[2017-08-27] MEDS: FISH OIL 1,000 MG CAP PO (08:55)
[2017-08-27] MEDS: BACLOFEN 10 MG TAB GTB ×4 (08:55→20:43)
[2017-08-27] MEDS: DICYCLOMINE 10 MG CAP GTB ×2 (08:55→20:43)
[2017-08-27] MEDS: CHOLECALCIFEROL 1,000 UNIT TAB GTB (08:56)
[2017-08-27] MEDS: ESCITALOPRAM 10 MG TAB GTB (08:56)
[2017-08-27] MEDS ORDERED: CEFAZOLIN 1 GM/50 ML (PMX) 50 ML IVPB (14:00)
[2017-08-27] MEDS ORDERED: CEFAZOLIN 1 GM INJ IV (14:00)
[2017-08-27] MEDS: LORAZEPAM 1 MG TAB GTB (20:42)
[2017-08-27] MEDS: FENOFIBRATE 145 MG TAB GTB (20:43)
[2017-08-27] MEDS: CEFAZOLIN 1 GM/50 ML (PMX) 50 ML IVPB (21:32)
[2017-08-28] MEDS: ALBUTEROL/IPRATROPIUM (NEB) 3 ML AMP HHN ×4 (01:25→19:57)
[2017-08-28 05:08] LABS: ADD MAN DIFF? NO
[2017-08-28 05:10] LABS: BASOPHIL # 0.1 10^3/ul (0.0-0.1); BASOPHILS % 0.9 % (0.0-2.0); EOSINOPHILS # 0.4 10^3/ul (0.0-0.5); HEMATOCRIT 30.2 % (42.0-52.0); HEMOGLOBIN 9.7 g/dl (14.0-18.0); LYMPHOCYTES # 1.6 10^3/ul (0.8-2.9); LYMPHOCYTES % 28.4 % (15.0-51.0); MEAN CORPUSCULAR HEMOGLOBIN 31.6 pg (29.0-33.0); MEAN CORPUSCULAR HGB CONC 32.1 g/dl (32.0-37.0); MEAN CORPUSCULAR VOLUME 98.4 fl (82.0-101.0); MEAN PLATELET VOLUME 12.7 fl (7.4-10.4); MONOCYTE # 0.4 10^3/ul (0.3-0.9); MONOCYTES % 6.9 % (0.0-11.0); NEUTROPHILS % 55.4 % (39.0-77.0); PLATELET COUNT 216 10^3/UL (140-415); RED BLOOD COUNT 3.07 10^6/ul (4.70-6.10); RED CELL DISTRIBUTION WIDTH 13.7 % (11.5-14.5)
[2017-08-28 05:10] LABS: WHITE BLOOD COUNT 5.5 10^3/ul (4.8-10.8)
[2017-08-28 05:37] LABS: ANION GAP 10 (8-16); BLOOD UREA NITROGEN 11 mg/dl (7-20); CALCIUM 8.8 mg/dl (8.4-10.2); CARBON DIOXIDE 29 mmol/L (21-31); CHLORIDE 110 mmol/L (97-110); CREATININE 0.75 mg/dl (0.61-1.24); GLUCOSE 114 mg/dl (70-220); POTASSIUM 4.2 mmol/L (3.5-5.1); SODIUM 145 mmol/L (135-144)
[2017-08-28] MEDS: LANSOPRAZOLE 30 MG CAP GTB (05:44)
[2017-08-28] MEDS: CEFAZOLIN 1 GM/50 ML (PMX) 50 ML IVPB ×3 (05:45→21:34)
[2017-08-28] MEDS: BACLOFEN 10 MG TAB GTB ×4 (09:48→20:31)
[2017-08-28] MEDS: ESCITALOPRAM 10 MG TAB GTB (09:48)
[2017-08-28] MEDS: CHOLECALCIFEROL 1,000 UNIT TAB GTB (09:48)
[2017-08-28] MEDS: SACCHAROMYCES BOULARDII 250 MG CAP GTB ×2 (09:48→20:31)
[2017-08-28] MEDS: FISH OIL 1,000 MG CAP PO (09:48)
[2017-08-28] MEDS: LEVETIRACETAM (100 MG/ML) 5ML CUP GTB ×2 (09:48→20:30)
[2017-08-28] MEDS: DICYCLOMINE 10 MG CAP GTB ×2 (09:48→20:30)
[2017-08-28] MEDS: METHENAMINE 1 GM TAB GTB ×2 (09:48→20:31)
[2017-08-28] MEDS: LORAZEPAM 1 MG TAB GTB (20:31)
[2017-08-28] MEDS: FENOFIBRATE 145 MG TAB GTB (20:31)
[2017-08-29] MEDS: ALBUTEROL/IPRATROPIUM (NEB) 3 ML AMP HHN ×4 (02:13→20:08)
[2017-08-29] MEDS: CEFAZOLIN 1 GM/50 ML (PMX) 50 ML IVPB ×2 (05:21→13:27)
[2017-08-29] MEDS: LANSOPRAZOLE 30 MG CAP GTB (05:25)
[2017-08-29 06:01] LABS: ADD MAN DIFF? NO
[2017-08-29 06:05] LABS: WHITE BLOOD COUNT 6.5 10^3/ul (4.8-10.8)
[2017-08-29 06:05] LABS: BASOPHILS % 0.6 % (0.0-2.0); EOSINOPHILS # 0.4 10^3/ul (0.0-0.5); EOSINOPHILS % 5.9 % (0.0-7.0); LYMPHOCYTES # 1.7 10^3/ul (0.8-2.9); LYMPHOCYTES % 25.7 % (15.0-51.0); MEAN CORPUSCULAR HEMOGLOBIN 31.5 pg (29.0-33.0); MEAN CORPUSCULAR HGB CONC 32.3 g/dl (32.0-37.0); MEAN CORPUSCULAR VOLUME 97.8 fl (82.0-101.0); MEAN PLATELET VOLUME 12.8 fl (7.4-10.4); MONOCYTE # 0.5 10^3/ul (0.3-0.9); MONOCYTES % 7.3 % (0.0-11.0); NEUTROPHIL # 3.9 10^3/ul (1.6-7.5); NEUTROPHILS % 60.2 % (39.0-77.0); PLATELET COUNT 226 10^3/UL (140-415); RED BLOOD COUNT 3.17 10^6/ul (4.70-6.10); RED CELL DISTRIBUTION WIDTH 13.6 % (11.5-14.5)
[2017-08-29 06:36] LABS: ANION GAP 13 (8-16); BLOOD UREA NITROGEN 14 mg/dl (7-20); CALCIUM 8.9 mg/dl (8.4-10.2); CARBON DIOXIDE 27 mmol/L (21-31); CHLORIDE 108 mmol/L (97-110); GLUCOSE 107 mg/dl (70-220); SODIUM 144 mmol/L (135-144)
[2017-08-29] MEDS: METHENAMINE 1 GM TAB GTB ×2 (09:00→21:06)
[2017-08-29] MEDS: CHOLECALCIFEROL 1,000 UNIT TAB GTB (11:21)
[2017-08-29] MEDS: ESCITALOPRAM 10 MG TAB GTB (11:21)
[2017-08-29] MEDS: DICYCLOMINE 10 MG CAP GTB ×2 (11:22→21:06)
[2017-08-29] MEDS: FISH OIL 1,000 MG CAP PO (11:22)
[2017-08-29] MEDS: BACLOFEN 10 MG TAB GTB ×5 (11:22→23:41)
[2017-08-29] MEDS: LEVETIRACETAM (100 MG/ML) 5ML CUP GTB ×2 (11:22→21:06)
[2017-08-29] MEDS: SACCHAROMYCES BOULARDII 250 MG CAP GTB ×2 (13:20→22:07)
[2017-08-29] MEDS: FENOFIBRATE 145 MG TAB GTB (21:06)
[2017-08-29] MEDS: LORAZEPAM 1 MG TAB GTB (23:41)
[2017-08-30] MEDS: ALBUTEROL/IPRATROPIUM (NEB) 3 ML AMP HHN ×2 (01:43→07:45)
[2017-08-30] MEDS: LANSOPRAZOLE 30 MG CAP GTB (05:49)
[2017-08-30] MEDS: SACCHAROMYCES BOULARDII 250 MG CAP GTB (09:17)
[2017-08-30] MEDS: BACLOFEN 10 MG TAB GTB (09:17)
[2017-08-30] MEDS: ESCITALOPRAM 10 MG TAB GTB (09:17)
[2017-08-30] MEDS: FISH OIL 1,000 MG CAP PO (09:17)
[2017-08-30] MEDS: METHENAMINE 1 GM TAB GTB (09:17)
[2017-08-30] MEDS: CHOLECALCIFEROL 1,000 UNIT TAB GTB (09:17)
[2017-08-30] MEDS: DICYCLOMINE 10 MG CAP GTB (09:17)
[2017-08-30] MEDS: LEVETIRACETAM (100 MG/ML) 5ML CUP GTB (09:17)
== END 2017-08-30 14:01 | DRG 698 ==
LOC: E/R 19:53 → MS1 08-23 00:12
DX: S37.39XA Other injury of urethra, initial encounter (principal); G82.50 Quadriplegia, unspecified; J96.10 Chronic respiratory failure, unspecified whether with hypoxia or hypercapnia; R31.0 Gross hematuria; Y84.6 Urinary catheterization as the cause of abnormal reaction of the patient, or of later complication, without mention of misadventure at the time of the procedure; N31.9 Neuromuscular dysfunction of bladder, unspecified; R13.10 Dysphagia, unspecified; Z93.0 Tracheostomy status; Y73.8 Miscellaneous gastroenterology and urology devices associated with adverse incidents, not elsewhere classified; Y92.10 Unspecified residential institution as the place of occurrence of the external cause
CPT/HCPCS: 36415; 71045; 80048; 80053; 81001; 83605; 83690; 85025; 87040; 87081; 87086; 94640; 94664; 99291-25

== ENCOUNTER 2018-03-15 02:42 | Inpatient (IN) | payer MEDICARE, OTHER ==
[2018-03-15 03:15] LABS: ADD MAN DIFF? NO
[2018-03-15 03:16] LABS: ABNORMAL IP MESSAGE 1; BASOPHIL # 0.1 10^3/ul (0.0-0.1); BASOPHILS % 0.3 % (0.0-2.0); EOSINOPHILS # 0.1 10^3/ul (0.0-0.5); EOSINOPHILS % 0.2 % (0.0-7.0); HEMATOCRIT 43.2 % (42.0-52.0); HEMOGLOBIN 14.2 g/dl (14.0-18.0); LYMPHOCYTES # 2.2 10^3/ul (0.8-2.9); LYMPHOCYTES % 10.2 % (15.0-51.0); MEAN CORPUSCULAR HEMOGLOBIN 31.8 pg (29.0-33.0); MEAN CORPUSCULAR HGB CONC 32.9 g/dl (32.0-37.0); MEAN CORPUSCULAR VOLUME 96.6 fl (82.0-101.0); MEAN PLATELET VOLUME 12.5 fl (7.4-10.4); MONOCYTE # 1.9 10^3/ul (0.3-0.9); MONOCYTES % 8.8 % (0.0-11.0); PLATELET COUNT 176 10^3/UL (140-415); POSITIVE DIFF @See below; RED BLOOD COUNT 4.47 10^6/ul (4.70-6.10); RED CELL DISTRIBUTION WIDTH 13.5 % (11.5-14.5)
[2018-03-15 03:16] LABS: WHITE BLOOD COUNT 21.2 10^3/ul (4.8-10.8)
[2018-03-15 03:53] LABS: ANION GAP 8 (5-13); BLOOD UREA NITROGEN 14 mg/dl (7-20); CALCIUM 9.5 mg/dl (8.4-10.2); CARBON DIOXIDE 30 mmol/L (21-31); CHLORIDE 103 mmol/L (97-110); CREATININE 0.81 mg/dl (0.61-1.24); Estimated GFR > 60 mL/min (>60); GLUCOSE 110 mg/dl (70-220); POTASSIUM 3.8 mmol/L (3.5-5.1); SODIUM 141 mmol/L (135-144)
[2018-03-15] MEDS: PIPER-TAZO 3.375 GM IV (PMX) 100 ML IVPB (04:22)
[2018-03-15] MEDS: SODIUM CHLORIDE 0.9% 1L BAG IV* (04:22)
[2018-03-15 04:25] LABS: ADD UMIC YES; UR ASCORBIC ACID 40 mg/dL (NEGATIVE); UR BACTERIA FEW /HPF (NONE SEEN); UR BILIRUBIN (Dip) NEGATIVE (NEGATIVE); UR BLOOD (Dip) 3+ mg/dL (NEGATIVE); UR CLARITY CLOUDY (CLEAR); UR COLOR AMBER (YELLOW); UR GLUCOSE (Dip) NEGATIVE (NEGATIVE); UR KETONES (Dip) NEGATIVE (NEGATIVE); UR LEUKOCYTE ESTERASE (Dip) 2+ Leu/ul (NEGATIVE); UR MUCUS FEW /HPF (NONE SEEN); UR NITRITE (Dip) NEGATIVE (NEGATIVE); UR RBC > 182 /HPF (0-5); UR SPECIFIC GRAVITY (Dip) 1.016 (1.003-1.030); UR TOTAL PROTEIN (Dip) 3+ mg/dl (NEGATIVE); UR UROBILINOGEN (Dip) NEGATIVE (NEGATIVE); UR WBC 24 /HPF (0-5)
[2018-03-15] MEDS ORDERED: ONDANSETRON 4 MG INJ IV (04:30)
[2018-03-15] MEDS ORDERED: ACETAMINOPHEN 325 MG TAB PO (04:30)
[2018-03-15] MEDS: SOD CHLORIDE 0.9% IVPB (04:59)
[2018-03-15] MEDS: GENTAMICIN IVPB (04:59)
[2018-03-15] MEDS: VANCOMYCIN 1 GM (PMX) 250 ML IVPB (06:09)
[2018-03-15] MEDS: LEVETIRACETAM (100 MG/ML) 5ML CUP GTB ×2 (14:37→23:10)
[2018-03-15] MEDS ORDERED: ACETAMINOPHEN 325 MG TAB GTB (15:30)
[2018-03-15] MEDS ORDERED: NON-FORMULARY/PATIENT OWN MED (Glatiramer Acetate (Copaxone) 40 MG) SQ (15:30)
[2018-03-15] MEDS: ALBUTEROL 0.083% (NEB) 2.5 MG/3 ML AMP NEB ×2 (15:48→20:11)
[2018-03-15] MEDS: [UNRECOGNIZED DRUG - REMARK] XX (16:00)
[2018-03-15] MEDS: BACLOFEN 10 MG TAB GTB ×2 (18:21→21:05)
[2018-03-15] MEDS: ERTAPENEM SODIUM 1 GM in SOD CHLORIDE 0.9% 100 ML IVPB (18:24)
[2018-03-15] MEDS ORDERED: LEVETIRACETAM (100 MG/ML PO SYG) GTB (21:00)
[2018-03-15] MEDS: LORAZEPAM 1 MG TAB GTB (21:04)
[2018-03-15] MEDS: DICYCLOMINE 10 MG CAP GTB (21:05)
[2018-03-15] MEDS: METHENAMINE 1 GM TAB GTB (21:05)
[2018-03-16] MEDS: ALBUTEROL 0.083% (NEB) 2.5 MG/3 ML AMP NEB ×4 (01:24→19:44)
[2018-03-16 05:25] LABS: ADD MAN DIFF? NO
[2018-03-16 05:30] LABS: WHITE BLOOD COUNT 9.7 10^3/ul (4.8-10.8)
[2018-03-16 05:30] LABS: BASOPHILS % 0.4 % (0.0-2.0); EOSINOPHILS # 0.2 10^3/ul (0.0-0.5); EOSINOPHILS % 2.1 % (0.0-7.0); HEMATOCRIT 38.4 % (42.0-52.0); HEMOGLOBIN 12.4 g/dl (14.0-18.0); LYMPHOCYTES # 1.4 10^3/ul (0.8-2.9); LYMPHOCYTES % 14.4 % (15.0-51.0); MEAN CORPUSCULAR HEMOGLOBIN 31.7 pg (29.0-33.0); MEAN CORPUSCULAR HGB CONC 32.3 g/dl (32.0-37.0); MEAN CORPUSCULAR VOLUME 98.2 fl (82.0-101.0); MEAN PLATELET VOLUME 12.8 fl (7.4-10.4); MONOCYTE # 0.7 10^3/ul (0.3-0.9); NEUTROPHIL # 7.3 10^3/ul (1.6-7.5); NEUTROPHILS % 75.8 % (39.0-77.0); PLATELET COUNT 154 10^3/UL (140-415); RED BLOOD COUNT 3.91 10^6/ul (4.70-6.10); RED CELL DISTRIBUTION WIDTH 13.5 % (11.5-14.5)
[2018-03-16] MEDS: [UNRECOGNIZED DRUG - REMARK] XX ×3 (08:00→16:00)
[2018-03-16] MEDS: DICYCLOMINE 10 MG CAP GTB ×2 (08:50→21:29)
[2018-03-16] MEDS: MULTIVITAMINS THERAPEUTIC TAB GTB (08:51)
[2018-03-16] MEDS: FAMOTIDINE 20 MG TAB PO (08:51)
[2018-03-16] MEDS: POTASSIUM CHLORIDE 20 MEQ POWDER FOR ORAL SOLN GTB (08:51)
[2018-03-16] MEDS: SACCHAROMYCES BOULARDII 250 MG CAP GTB (08:51)
[2018-03-16] MEDS: ESCITALOPRAM 10 MG TAB GTB (08:51)
[2018-03-16] MEDS: BACLOFEN 10 MG TAB GTB ×4 (08:51→21:29)
[2018-03-16] MEDS: LEVETIRACETAM (100 MG/ML) 5ML CUP GTB ×2 (08:51→21:29)
[2018-03-16] MEDS: FENOFIBRATE 145 MG TAB GTB (08:51)
[2018-03-16] MEDS: METHENAMINE 1 GM TAB GTB ×2 (08:51→21:29)
[2018-03-16] MEDS: CHOLECALCIFEROL 1,000 UNIT TAB GTB (08:52)
[2018-03-16] MEDS: FERROUS SULFATE (EC) 325 MG TAB PO (08:55)
[2018-03-16] MEDS: DOCUSATE SODIUM 100 MG CAP PO (09:00)
[2018-03-16] MEDS: MAGNESIUM HYDROXIDE 30ML CUP GTB (09:00)
[2018-03-16] MEDS: ERTAPENEM SODIUM 1 GM in SOD CHLORIDE 0.9% 100 ML IVPB (17:47)
[2018-03-16] MEDS: LORAZEPAM 1 MG TAB GTB (23:18)
[2018-03-17] MEDS: ALBUTEROL 0.083% (NEB) 2.5 MG/3 ML AMP NEB ×4 (01:31→20:02)
[2018-03-17] MEDS: [UNRECOGNIZED DRUG - REMARK] XX ×3 (08:00→16:00)
[2018-03-17] MEDS: MAGNESIUM HYDROXIDE 30ML CUP GTB (10:04)
[2018-03-17] MEDS: POTASSIUM CHLORIDE 20 MEQ POWDER FOR ORAL SOLN GTB (10:05)
[2018-03-17] MEDS: DOCUSATE SODIUM 100 MG CAP PO (10:05)
[2018-03-17] MEDS: LEVETIRACETAM (100 MG/ML) 5ML CUP GTB ×2 (10:05→21:58)
[2018-03-17] MEDS: BACLOFEN 10 MG TAB GTB ×4 (10:05→21:58)
[2018-03-17] MEDS: MULTIVITAMINS THERAPEUTIC TAB GTB (10:05)
[2018-03-17] MEDS: ESCITALOPRAM 10 MG TAB GTB (10:05)
[2018-03-17] MEDS: METHENAMINE 1 GM TAB GTB ×2 (10:06→21:58)
[2018-03-17] MEDS: FENOFIBRATE 145 MG TAB GTB (10:06)
[2018-03-17] MEDS: DICYCLOMINE 10 MG CAP GTB ×2 (10:06→21:58)
[2018-03-17] MEDS: FERROUS SULFATE (EC) 325 MG TAB PO (10:07)
[2018-03-17] MEDS: CHOLECALCIFEROL 1,000 UNIT TAB GTB (10:07)
[2018-03-17] MEDS: FAMOTIDINE 20 MG TAB PO (10:07)
[2018-03-17] MEDS: SACCHAROMYCES BOULARDII 250 MG CAP GTB (10:07)
[2018-03-17] MEDS ORDERED: AMIKACIN IV PER PHARMACY XX (12:30)
[2018-03-17] MEDS: AMIKACIN 1,000 MG in SOD CHLORIDE 0.9% 100 ML IVPB (14:40)
[2018-03-17] MEDS: LORAZEPAM 1 MG TAB GTB (23:54)
[2018-03-18] MEDS: ALBUTEROL 0.083% (NEB) 2.5 MG/3 ML AMP NEB ×4 (01:41→20:38)
[2018-03-18 05:18] LABS: ADD MAN DIFF? NO
[2018-03-18 05:31] LABS: WHITE BLOOD COUNT 5.4 10^3/ul (4.8-10.8)
[2018-03-18 05:31] LABS: BASOPHILS % 0.7 % (0.0-2.0); EOSINOPHILS # 0.3 10^3/ul (0.0-0.5); EOSINOPHILS % 5.7 % (0.0-7.0); HEMOGLOBIN 13.6 g/dl (14.0-18.0); LYMPHOCYTES # 1.6 10^3/ul (0.8-2.9); LYMPHOCYTES % 30.4 % (15.0-51.0); MEAN CORPUSCULAR HEMOGLOBIN 31.8 pg (29.0-33.0); MEAN CORPUSCULAR HGB CONC 32.4 g/dl (32.0-37.0); MEAN CORPUSCULAR VOLUME 98.1 fl (82.0-101.0); MEAN PLATELET VOLUME 12.7 fl (7.4-10.4); MONOCYTE # 0.4 10^3/ul (0.3-0.9); NEUTROPHILS % 54.8 % (39.0-77.0); PLATELET COUNT 192 10^3/UL (140-415); RED BLOOD COUNT 4.28 10^6/ul (4.70-6.10); RED CELL DISTRIBUTION WIDTH 13.2 % (11.5-14.5)
[2018-03-18 05:48] LABS: ANION GAP 12 (5-13); BLOOD UREA NITROGEN 16 mg/dl (7-20); CALCIUM 9.5 mg/dl (8.4-10.2); CARBON DIOXIDE 31 mmol/L (21-31); CHLORIDE 102 mmol/L (97-110); CREATININE 0.67 mg/dl (0.61-1.24); Estimated GFR > 60 mL/min (>60); GLUCOSE 84 mg/dl (70-220); POTASSIUM 4.7 mmol/L (3.5-5.1); SODIUM 145 mmol/L (135-144)
[2018-03-18] MEDS: [UNRECOGNIZED DRUG - REMARK] XX ×4 (08:00→21:10)
[2018-03-18] MEDS: DOCUSATE SODIUM 100 MG CAP PO (10:06)
[2018-03-18] MEDS: FERROUS SULFATE (EC) 325 MG TAB PO (10:06)
[2018-03-18] MEDS: FENOFIBRATE 145 MG TAB GTB (10:14)
[2018-03-18] MEDS: BACLOFEN 10 MG TAB GTB ×4 (10:14→21:21)
[2018-03-18] MEDS: DICYCLOMINE 10 MG CAP GTB ×2 (10:14→21:21)
[2018-03-18] MEDS: CHOLECALCIFEROL 1,000 UNIT TAB GTB (10:14)
[2018-03-18] MEDS: POTASSIUM CHLORIDE 20 MEQ POWDER FOR ORAL SOLN GTB (10:14)
[2018-03-18] MEDS: FAMOTIDINE 20 MG TAB PO (10:15)
[2018-03-18] MEDS: ESCITALOPRAM 10 MG TAB GTB (10:15)
[2018-03-18] MEDS: METHENAMINE 1 GM TAB GTB ×2 (10:15→21:21)
[2018-03-18] MEDS: SACCHAROMYCES BOULARDII 250 MG CAP GTB (10:15)
[2018-03-18] MEDS: MAGNESIUM HYDROXIDE 30ML CUP GTB (10:15)
[2018-03-18] MEDS: LEVETIRACETAM (100 MG/ML) 5ML CUP GTB ×2 (10:15→21:21)
[2018-03-18] MEDS: MULTIVITAMINS THERAPEUTIC TAB GTB (10:15)
[2018-03-18] MEDS ORDERED: AMIKACIN 1,000 MG in SOD CHLORIDE 0.9% 250 ML IVPB (10:27)
[2018-03-18] MEDS: AMIKACIN 1,000 MG in SOD CHLORIDE 0.9% 250 ML IVPB (13:31)
[2018-03-18] MEDS: LORAZEPAM 1 MG TAB GTB (21:21)
[2018-03-19] MEDS: ALBUTEROL 0.083% (NEB) 2.5 MG/3 ML AMP NEB ×3 (01:49→14:26)
[2018-03-19] MEDS: [UNRECOGNIZED DRUG - REMARK] XX (08:00)
[2018-03-19] MEDS: MAGNESIUM HYDROXIDE 30ML CUP GTB (09:00)
[2018-03-19] MEDS: DOCUSATE SODIUM 100 MG CAP PO (09:00)
[2018-03-19] MEDS: LEVETIRACETAM (100 MG/ML) 5ML CUP GTB (10:36)
[2018-03-19] MEDS: SACCHAROMYCES BOULARDII 250 MG CAP GTB (10:37)
[2018-03-19] MEDS: DICYCLOMINE 10 MG CAP GTB (10:37)
[2018-03-19] MEDS: FENOFIBRATE 145 MG TAB GTB (10:37)
[2018-03-19] MEDS: MULTIVITAMINS THERAPEUTIC TAB GTB (10:37)
[2018-03-19] MEDS: ESCITALOPRAM 10 MG TAB GTB (10:37)
[2018-03-19] MEDS: POTASSIUM CHLORIDE 20 MEQ POWDER FOR ORAL SOLN GTB (10:37)
[2018-03-19] MEDS: METHENAMINE 1 GM TAB GTB (10:37)
[2018-03-19] MEDS: CHOLECALCIFEROL 1,000 UNIT TAB GTB (10:38)
[2018-03-19] MEDS: BACLOFEN 10 MG TAB GTB ×2 (10:38→14:55)
[2018-03-19] MEDS: FAMOTIDINE 20 MG TAB PO (10:39)
[2018-03-19] MEDS: FERROUS SULFATE (EC) 325 MG TAB PO (10:39)
[2018-03-19] MEDS: AMIKACIN 1,000 MG in SOD CHLORIDE 0.9% 250 ML IVPB (14:55)
[2018-03-19 16:32] LABS: AMIKACIN TROUGH <2.5 mg/L (4.0-8.0)
== END 2018-03-19 17:50 | DRG 699 ==
LOC: E/R 02:42 → MS1 04:31
DX: T83.511A Infection and inflammatory reaction due to indwelling urethral catheter, initial encounter (principal); N30.01 Acute cystitis with hematuria; J96.10 Chronic respiratory failure, unspecified whether with hypoxia or hypercapnia; Z93.0 Tracheostomy status; R13.10 Dysphagia, unspecified; N31.9 Neuromuscular dysfunction of bladder, unspecified; G35 Multiple sclerosis; E78.5 Hyperlipidemia, unspecified; G40.909 Epilepsy, unspecified, not intractable, without status epilepticus; F41.8 Other specified anxiety disorders; B96.20 Unspecified Escherichia coli [E. coli] as the cause of diseases classified elsewhere; B96.89 Other specified bacterial agents as the cause of diseases classified elsewhere; Z16.12 Extended spectrum beta lactamase (ESBL) resistance
CPT/HCPCS: 36415; 80048; 80150; 81001; 85025; 87040; 87086; 94640; 94664; 96374; 99285-25

== ENCOUNTER 2018-05-07 09:54 | Emergency (ER) | payer MEDICARE, OTHER ==
[2018-05-07 12:27] LABS: ADD MAN DIFF? NO
[2018-05-07 12:30] LABS: WHITE BLOOD COUNT 5.3 10^3/ul (4.8-10.8)
[2018-05-07 12:30] LABS: BASOPHIL # 0.1 10^3/ul (0.0-0.1); BASOPHILS % 0.9 % (0.0-2.0); EOSINOPHILS # 0.3 10^3/ul (0.0-0.5); EOSINOPHILS % 5.3 % (0.0-7.0); HEMATOCRIT 39.9 % (42.0-52.0); LYMPHOCYTES # 1.1 10^3/ul (0.8-2.9); LYMPHOCYTES % 20.8 % (15.0-51.0); MEAN CORPUSCULAR HEMOGLOBIN 31.5 pg (29.0-33.0); MEAN CORPUSCULAR HGB CONC 32.6 g/dl (32.0-37.0); MEAN CORPUSCULAR VOLUME 96.6 fl (82.0-101.0); MEAN PLATELET VOLUME 12.3 fl (7.4-10.4); MONOCYTE # 0.5 10^3/ul (0.3-0.9); MONOCYTES % 9.6 % (0.0-11.0); NEUTROPHIL # 3.4 10^3/ul (1.6-7.5); NEUTROPHILS % 63.2 % (39.0-77.0); PLATELET COUNT 214 10^3/UL (140-415); RED BLOOD COUNT 4.13 10^6/ul (4.70-6.10); RED CELL DISTRIBUTION WIDTH 13.2 % (11.5-14.5)
[2018-05-07 12:41] LABS: ADD UMIC YES; UR AMORPHOUS CRYSTAL MODERATE /HPF (NONE SEEN); UR ASCORBIC ACID 40 mg/dL (NEGATIVE); UR BACTERIA FEW /HPF (NONE SEEN); UR BILIRUBIN (Dip) NEGATIVE (NEGATIVE); UR BLOOD (Dip) 3+ mg/dL (NEGATIVE); UR CLARITY CLOUDY (CLEAR); UR COLOR RED (YELLOW); UR GLUCOSE (Dip) NEGATIVE (NEGATIVE); UR KETONES (Dip) NEGATIVE (NEGATIVE); UR LEUKOCYTE ESTERASE (Dip) 3+ Leu/ul (NEGATIVE); UR NITRITE (Dip) NEGATIVE (NEGATIVE); UR RBC > 182 /HPF (0-5); UR SPECIFIC GRAVITY (Dip) 1.008 (1.003-1.030); UR TOTAL PROTEIN (Dip) NEGATIVE (NEGATIVE); UR UROBILINOGEN (Dip) NEGATIVE (NEGATIVE); UR WBC 89 /HPF (0-5)
[2018-05-07 12:50] LABS: ALANINE AMINOTRANSFERASE 13 IU/L (13-69); ALBUMIN 3.8 g/dl (3.3-4.9); ALBUMIN/GLOBULIN RATIO 1.15; ALKALINE PHOSPHATASE 54 IU/L (42-121); ANION GAP 7 (5-13); ASPARTATE AMINO TRANSFERASE 20 IU/L (15-46); BILIRUBIN,INDIRECT 0.1 mg/dl (0-1.1); BILIRUBIN,TOTAL 0.1 mg/dl (0.2-1.3); BLOOD UREA NITROGEN 10 mg/dl (7-20); CALCIUM 9.5 mg/dl (8.4-10.2); CARBON DIOXIDE 29 mmol/L (21-31); CHLORIDE 107 mmol/L (97-110); CREATININE 0.66 mg/dl (0.61-1.24); Estimated GFR > 60 mL/min (>60); GLUCOSE 87 mg/dl (70-220); LIPASE 28 U/L (23-300); SODIUM 143 mmol/L (135-144); TOTAL PROTEIN 7.1 g/dl (6.1-8.1)
[2018-05-07 12:51] LABS: INR 0.98; PARTIAL THROMBOPLASTIN TIME 30.9 Sec (23.0-35.0); PROTIME 13.1 Sec (11.9-14.9)
[2018-05-07] MEDS: CEFEPIME 1GM/50 ML (PMX) 50 ML IVPB (14:17)
== END 2018-05-07 18:29 | disposition short-term general hospital (02) ==
LOC: E/R 18:29
DX: E86.0 Dehydration (principal); G35 Multiple sclerosis; G82.50 Quadriplegia, unspecified; N31.9 Neuromuscular dysfunction of bladder, unspecified; N30.90 Cystitis, unspecified without hematuria; R40.2142 Coma scale, eyes open, spontaneous, at arrival to emergency department; R40.2252 Coma scale, best verbal response, oriented, at arrival to emergency department; R40.2362 Coma scale, best motor response, obeys commands, at arrival to emergency department; Z79.82 Long term (current) use of aspirin
CPT/HCPCS: 36415; 80053; 81001; 83690; 85025; 85610; 85730; 87086; 96374; 99285-25